=== PATIENT | male | born 2000 | race Caucasian/White ===

== ENCOUNTER 2018-03-04 14:02 | Emergency (ER) | payer OTHER ==
[2018-03-04 14:10] VITALS: BP 134/87; PULSE 87; RESP 18; TEMP 98.4
--- NOTE | 2018-03-04 14:38 | XR ---
EXAMINATION TYPE: XR hand complete RT DATE OF EXAM: 03/04/2018 CLINICAL HISTORY: pain TECHNIQUE: Frontal, lateral and oblique images of the right hand are obtained. COMPARISON: None. FINDINGS: There is no acute fracture/dislocation evident. The joint spaces appear within normal limi ts. Radiopaque density overlies the thumb soft tissues and may reflect foreign body. Additional lacer ation suggested second digit. Correlate clinically. IMPRESSION: There is no acute fracture or dislocation ICD 10 NO FRACTURE, INITIAL EVALUATION
[2018-03-04] MEDS ORDERED: TOPICAL SKIN ADHESIVE 1 EACH AMP TOPICAL ONE (14:46)
--- NOTE | 2018-03-04 14:46 | ED ---
General Adult HPI - General Chief complaint: Wound/Laceration Stated complaint: Hand laceration Time Seen by Provider: 03/04/18 14:14 Source: patient, RN notes reviewed Mode of arrival: ambulatory Limitations: no limitations - History of Present Illness Initial comments: Patient 17-year-old male presents to the emergency room today with a chief complaint of laceration to the right hand. States that he became upset and punched a TV. He states he does have a laceration to the thumb and index finger. Patient does admit to some pain locally. He states his tetanus is up- to-date. He denies any other complaints or symptoms at this time. Patient denies any recent fever, chills, shortness of breath, chest pain, back pain, abdominal pain, nausea or vomiting, numbness or tingling, or any other complaints. - Related Data Home Medications Medication Instructions Recorded Confirmed No Known Home Medications [No 11/02/17 11/02/17 Known Home Medications] Allergies Allergy/AdvReac Type Severity Reaction Status Date / Time No Known Allergies Allergy Verified 03/04/18 14:10 Review of Systems ROS Statement: Those systems with pertinent positive or pertinent negative responses have been documented in the HPI. ROS Other: All systems not noted in ROS Statement are negative. Past Medical History Past Medical History: No Reported History History of Any Multi-Drug Resistant Organisms: None Reported Past Surgical History: No Surgical Hx Reported Past Psychological History: No Psychological Hx Reported Smoking Status: Never smoker Past Alcohol Use History: None Reported Past Drug Use History: Marijuana General Exam - General Exam Comments Initial Comments: General: The patient is awake and alert, in no distress, and does not appear acutely ill. Neck: The neck is supple, there is no tenderness or JVD. Cardiovascular: There is a regular rate and rhythm. No murmur, rub or gallop is appreciated. Respiratory: Lungs are clear to auscultation, respirations are non-labored, breath sounds are equal. No wheezes, stridor, rales, or rhonchi. Musculoskeletal: There has full range motion. Flexion and extension is intact strength 5/5. Sensations intact. Pulses 2+. Neurological: A&O x 3. CN II-XII intact, There are no obvious motor or sensory deficits. Coordination appears grossly intact. Speech is normal. Skin: Patient does have superficial laceration to the back of the right thumb measures approximately 1.5 cm in length and V-shaped. Small laceration to the third digit measuring half centimeter laceration over the fifth MCP joint 2 parallel lacerations measuring approximately 1 cm each. These lacerations are superficial. Patient does have a T-shaped laceration over the PIP joint of the right index finger. Second laceration to the right index finger just proximal to the first linear in nature measures approximate centimeter. Psychiatric: Normal mood and affect. Limitations: no limitations Course Vital Signs 03/04/18 14:06 Temperature 98.4 F Pulse Rate 87 Respiratory 18 Rate Blood Pressure 134/87 O2 Sat by Pulse 99 Oximetry Procedures - Procedures Initial comment: Laceration to the right index finger T-shaped measuring proximal 1 cm in total length was irrigated with saline under pressure. A total of 3 sutures were placed. 5-0 nylon used. Second laceration to the right index finger running proximal to the first was closed with Dermabond. Third laceration to the posterior aspect of the right thumb measuring a total 1.5 cm. Was closed with Dermabond. Fourth laceration to the third third proximal digit measuring half centimeter was again closed with Dermabond. Fifth laceration site of 2 lacerations running parallel over the fifth MCP joint measures approximate 1 cm was again closed with Dermabond. The laceration sites were irrigated with saline under pressure. All wounds were dragged with forceps no foreign bodies seen. Disposition Clinical Impression: Laceration Disposition: HOME SELF-CARE Condition: Good Instructions: Laceration (ED) Additional Instructions: Please return to the emergency room in 8-10 days to have sutures removed. Please watch for any signs of infection which may include increased pain, swelling, redness, fever or chills. Please return to emergency room for any signs of infection do occur. Please use clean soap and water over the area to prevent scabbing over your stitches. Please leave wound covered for the first 24-48 hours and then leave wound open to air. Please return to the emergency room for any other concerns. Referrals: None,Stated [Primary Care Provider] - 1-2 days Carlo Rothman MD [STAFF PHYSICIAN] - 1-2 days Time of Disposition: 15:19
== END 2018-03-04 15:33 | disposition home or self-care (01) ==
LOC: EC 14:02
DX: S61.210A Laceration without foreign body of right index finger without damage to nail, initial encounter (principal); S61.212A Laceration without foreign body of right middle finger without damage to nail, initial encounter; S61.011A Laceration without foreign body of right thumb without damage to nail, initial encounter; S61.411A Laceration without foreign body of right hand, initial encounter; W22.8XXA Striking against or struck by other objects, initial encounter
CPT/HCPCS: 12002; 99283

== ENCOUNTER 2024-02-22 22:09 | Emergency (ER) | payer OTHER ==
[2024-02-22 22:42] VITALS: BP 117/87; PULSE 71; RESP 18; TEMP 97.8
--- NOTE | 2024-02-22 23:03 | ED ---
Dizziness HPI - General Chief Complaint: Syncope Stated Complaint: syncope Time Seen by Provider: 02/22/24 22:35 Source: patient Mode of arrival: EMS Limitations: no limitations - History of Present Illness Initial Comments: 33-year-old male presenting to the ED with a chief complaint of syncopal episode. Patient states he has a history of anxiety and panic attacks and notes with prior panic attacks he has had syncopal episodes. Today, was pulled over by PD and he reports once they told him he had a warrant out for his arrest, he had a syncopal episode. PD at bedside states that this lasted 2 to 3 seconds. Patient now in his normal self. Denies any other symptoms such as chest pain shortness of breath. Currently has no complaints. No abdominal pain, nausea, vomiting, diarrhea. No other complaints at this time. - Related Data Home Medications Medication Instructions Recorded Confirmed No Known Home Medications 11/02/17 11/02/17 Allergies Allergy/AdvReac Type Severity Reaction Status Date / Time No Known Allergies Allergy Verified 03/04/18 14:10 Review of Systems ROS Statement: Those systems with pertinent positive or pertinent negative responses have been documented in the HPI. ROS Other: All systems not noted in ROS Statement are negative. Past Medical History Past Medical History: No Reported History History of Any Multi-Drug Resistant Organisms: None Reported Past Surgical History: No Surgical Hx Reported Past Psychological History: No Psychological Hx Reported Past Alcohol Use History: None Reported Past Drug Use History: Marijuana General Exam Limitations: no limitations General appearance: alert, in no apparent distress Eye exam: Present: normal appearance Neck exam: Present: normal inspection Respiratory exam: Present: normal lung sounds bilaterally Cardiovascular Exam: Present: regular rate, normal rhythm GI/Abdominal exam: Present: soft Neurological exam: Present: alert, oriented X3 Skin exam: Present: warm, dry Course Vital Signs 02/22/24 22:15 Temperature 97.8 F Pulse Rate 71 Respiratory 18 Rate Blood Pressure 117/87 O2 Sat by Pulse 98 Oximetry Medical Decision Making - Medical Decision Making Was pt. sent in by a medical professional or institution (, PA, DIRECTOR POST, urgent care, hospital, or prison...) When possible be specific @ -Patient brought to this facility by [place] on PD Did you speak to anyone other than the patient for history (EMS, parent, family, police, friend...)? What history was obtained from this source @ -Spoke to PD who witnessed syncopal episode lasting 2 to 3 seconds. Did you review nursing and triage notes (agree or disagree)? Why? @ -I reviewed and agree with nursing and triage notes Were old charts reviewed (outside hosp., previous admission, EMS record, old EKG, old radiological studies, urgent care reports/EKG's, prison records)? Report findings @ -No old charts were reviewed Differential Diagnosis (chest pain, altered mental status, abdominal pain women, abdominal pain men, vaginal bleeding, weakness, fever, dyspnea, syncope, headache, dizziness, GI bleed, back pain, seizure, CVA, palpatations, mental health, musculoskeletal)? @ -Differential Syncope: Valvular disease, hypertrophic cardiomyopathy, pulmonary embolism, tamponade, tachycardia, bradycardia, SC, hypovolemia, hemorrhage, dissection, anemia, intracranial hemorrhage, seizure, hypoglycemia, carbon monoxide poisoning, this is not meant to be an all-inclusive list. EKG interpreted by me (3pts min.). @ -EKG interpreted by me showing a sinus rhythm with nonspecific ST and T wave changes at a rate of 61 bpm. CO 131, QRS 98, QT/QTc 396/399. X-rays interpreted by me (1pt min.). @ -None done CT interpreted by me (1pt min.). @ -None done U/S interpreted by me (1pt. min.). @ -None done What testing was considered but not performed or refused? (CT, X-rays, U/S, labs)? Why? @ -Laboratory testing was considered however patient declined at this time. What meds were considered but not given or refused? Why? @ -None Did you discuss the management of the patient with other professionals (professionals i.e. , PA, DIRECTOR POST, lab, RT, psych nurse, manager social responsibility, drag out man, teacher, ordnance officer, technical manager chemical plant)? Give summary @ -No Was smoking cessation discussed for >3mins.? @ -No Was critical care preformed (if so, how long)? @ -No Were there social determinants of health that impacted care today? How? (Homelessness, low income, unemployed, alcoholism, drug addiction, transportation, low edu. Level, literacy, decrease access to med. care, assisted, rehab)? @ -No Was there de-escalation of care discussed even if they declined (Discuss DNR or withdrawal of care, Hospice)? DNR status @ -No What co-morbidities impacted this encounter? (DM, HTN, Smoking, COPD, CAD, Cancer, CVA, ARF, Chemo, Hep., AIDS, mental health diagnosis, sleep apnea, morbid obesity)? @ -None Was patient admitted / discharged? Hospital course, mention meds given and route, prescriptions, significant lab abnormalities, going to OR and other pertinent info. @ -Discharge 23-year-old male presented to the ED with complaints of syncope consistent with history of anxiety and panic attacks lasting 2 to 3 seconds. This was witnessed by PD and patient is now back to his normal self with no current complaints. EKG revealed a sinus rhythm with nonspecific findings. Blood work was to be obtained however patient declined this. Discharged with PD in stable condition. Discussed return precautions with patient who verbalized agreement. Undiagnosed new problem with uncertain prognosis? @ -No Drug Therapy requiring intensive monitoring for toxicity (Heparin, Nitro, Insulin, Cardizem)? @ -No Were any procedures done? @ -No Diagnosis/symptom? @ -Syncope Acute, or Chronic, or Acute on Chronic? @ -Acute Uncomplicated (without systemic symptoms) or Complicated (systemic symptoms)? @ -Uncomplicated Side effects of treatment? @ -No Exacerbation, Progression, or Severe Exacerbation? @ -No Poses a threat to life or bodily function? How? (Chest pain, USA, SC, pneumonia, PE, COPD, DKA, ARF, appy, cholecystitis, CVA, Diverticulitis, Homicidal, Suicidal, threat to staff... and all critical care pts) @ -No Disposition Clinical Impression: Syncope Disposition: HOME SELF-CARE Condition: Good Additional Instructions: Please return to the Emergency Department if symptoms worsen or any other concerns. Please follow-up with your primary care provider. Is patient prescribed a controlled substance at d/c from ED?: No Referrals: None,Stated [Primary Care Provider] - 1-2 days Time of Disposition: 23:06
== END 2024-02-22 23:12 | disposition home or self-care (01) ==
LOC: EC 22:09
DX: R55 Syncope and collapse (principal); F12.90 Cannabis use, unspecified, uncomplicated
CPT/HCPCS: 93005; 99284